=== PATIENT | male | born 1970 | race Caucasian/White ===

== ENCOUNTER 2023-09-29 13:54 | Emergency (ER) | payer OTHER ==
[2023-09-29 14:03] VITALS: BP 117/71; PULSE 81; RESP 18; TEMP 98; BMI 26.4
== END 2023-09-29 15:22 | disposition home or self-care (01) ==
LOC: JERFT 13:54
DX: H11.31 Conjunctival hemorrhage, right eye (principal)
CPT/HCPCS: 99282-25

== ENCOUNTER 2024-01-26 04:26 | Day surgery (SDC) | payer OTHER ==
[2024-01-23 11:22] VITALS: BMI 26.4
[2024-01-26] MEDS ORDERED: ceFAZolin SODIUM 1 GM VIAL ONE (06:35)
[2024-01-26] MEDS ORDERED: BUPIVACAINE HCL/PF 0.5% (5MG/ML) 10 ML VIAL ONE (07:19)
[2024-01-26] MEDS ORDERED: PROPOFOL 40 ML ONE (07:48)
[2024-01-26] MEDS ORDERED: ROCURONIUM BROMIDE 50 MG/5 ML SYRINGE ONE ×2 (07:48→10:08)
[2024-01-26] MEDS ORDERED: FENTANYL CITRATE/PF 50 MCG/ML VIAL ONE ×2 (07:49→09:34)
[2024-01-26] MEDS ORDERED: SUCCINYLCHOLINE CHLORIDE 200 MG/10 ML SYRINGE ONE (07:49)
[2024-01-26] MEDS ORDERED: MIDAZOLAM HCL 2 MG/2 ML SINGLE DOSE VIAL ONE (07:49)
[2024-01-26] MEDS ORDERED: HYDROmorphone HCl 2 MG/ML VIAL ONE (08:14)
[2024-01-26] MEDS: ceFAZolin SODIUM 1 GM VIAL IVPB ONE (08:20)
[2024-01-26] MEDS: BUPIVACAINE HCL/PF 0.5% (5 MG/ML) 30 ML VIAL IJ ONE (08:41)
[2024-01-26] MEDS ORDERED: oxyCODONE HCL 5 MG TABLET PO PRN ×2 (09:36)
[2024-01-26] MEDS ORDERED: ONDANSETRON 4 MG/2 ML VIAL IVPUSH PRN (09:36)
[2024-01-26] MEDS ORDERED: ACETAMINOPHEN INJECTION 100 ML IVPB ONE (10:23)
[2024-01-26] MEDS ORDERED: SUGAMMADEX SODIUM 200 MG/2 ML VIAL ONE (10:45)
[2024-01-26] MEDS ORDERED: KETOROLAC TROMETHAMINE 30 MG/1 ML VIAL ONE (10:50)
[2024-01-26] MEDS: LACTATED RINGERS SOLUTION 1,000 ML IV SCH (11:05)
[2024-01-26 13:17] VITALS: PULSE 74
[2024-01-26] MEDS: CEFAZOLIN SODIUM 2 GM in DEXTROSE 5%-WATER 100 ML IVPB ONE (13:21)
[2024-01-26] MEDS ORDERED: oxyCODONE HCL 5 MG TABLET ONE (13:34)
[2024-01-26] MEDS: oxyCODONE HCL 5 MG TABLET PO ONE (13:35)
[2024-01-26] MEDS ORDERED: ONDANSETRON 4 MG/2 ML VIAL ONE (13:52)
[2024-01-26] MEDS: ONDANSETRON 4 MG/2 ML VIAL IVPUSH ONE (13:55)
[2024-01-26 15:32] VITALS: BP 110/65; RESP 16; TEMP 97.5
== END 2024-01-26 15:40 | disposition home or self-care (01) ==
LOC: JASU-SURG 04:26
PROVIDERS: ATTEND Surgery
PROC: 0YUA4JZ Supplement Bilateral Inguinal Region with Synthetic Substitute, Percutaneous Endoscopic Approach (ICD-10-PCS; principal; 2024-01-26 08:00)
DX: K40.20 Bilateral inguinal hernia, without obstruction or gangrene, not specified as recurrent (principal)
CPT/HCPCS: 82962; 86850; 86900; 86901; 94760; C1781; J0131